=== PATIENT | female | born 2000 | race Caucasian/White ===

== ENCOUNTER 2024-03-14 13:02 | Emergency (ER) | payer OTHER, SELFPAY ==
--- NOTE | 2024-03-14 13:10 | ED.GENADULT ---
HPI - General Adult General Chief complaint: Extremity Problem,Nontraumatic Stated complaint: LOW BACK PAIN/R KNEE PAIN Time Seen by Provider: 03/14/24 13:10 Source: patient, RN notes reviewed and old records reviewed Mode of arrival: ambulatory Limitations: no limitations History of Present Illness HPI narrative: 23-year-old female to [facility] for complaint of right knee pain and lower back pain. Patient states that the right knee pain and lower back pain started in November without any known injury. Patient states that she was seen by her primary care provider and had an MRI completed at that time. Patient states that provider gave her a prescription for a muscle relaxer that was helpful. Patient reports that dull, bilateral lower back discomfort started again 3 days ago. patient states that she works for the [employer] and does a lot squatting and kneeling. Patient states that this morning upon wakening she had right knee discomfort while lying in bed. Patient reports that when she attempted to stand up that her right knee buckled . Patient denies falling. Patient arrives with a knee brace on, stating it helps. Patient denies numbness, weakness, injury, urinary changes, bowel changes. patient is sitting comfortably in exam room. No acute distress. Review of Systems Review of Systems: All systems reviewed & are unremarkable except as noted in HPI and below Constitutional: Constitutional: Reports no additional constitutional complaints Eyes: Eyes: Reports no additional eye complaints ENT: Reports system reviewed and no additional complaints, except as documented Cardiovascular: Cardiovascular: Reports no additional cardiovascular complaints, Denies chest pain and Denies dyspnea Respiratory: Respiratory: Reports no additional respiratory complaints, Denies cough and Denies dyspnea Musculoskeletal: Musculoskeletal: Reports as per HPI, Reports back pain ( bilateral lower back), Reports arthralgias ( Right knee) and Denies radiating pain into limb Neurologic: Reports system reviewed and no additional complaints, except as documented Psychiatric: Psychiatric: Reports no additional psychiatric complaints PMFSH Comments At the time of my signature, I reviewed and agree with the nursing past medical, surgical, social, and family history. There is no relevant family history pertinent to the patient complaint. Exam Const: General: cooperative, healthy appearing, comfortable, no acute distress, alert and well nourished Nutritional Appearance: well nourished Orientation/consciousness: patient oriented x3 Limitations: no limitations HENMT: Head: normal to inspection Ears: external ears normal Face/Nose/Sinus: Normal external nose present, Normal nares present, normal facial exam, No erythema and No edema Face and sinus: normal facial exam, no erythema and no edema Mouth: Yes Normal oral and palatal mucosa present Eyes: General: appearance normal, both eyes and all related structures Neck: Neck: normal visual inspection, full ROM and no meningeal signs Lymphatic: no lymphadenopathy noted and no lymphedema noted Chest: Chest palpation & inspection: normal inspection of the chest Resp: Effort & Inspection: normal respiratory effort and able to speak in complete sentences Auscultation: clear to auscultation bilaterally Cardio: Jugular venous distension: no JVD Rate: regular rate Rhythm: regular rhythm Back/Spine/Pelvis: Back: CVA tenderness Cervical Spine: cervical ROM normal Thoracic/Lumbar Spine: No pain with thoraco-lumbar ROM, No paraspinal muscle tenderness, No thoraco-lumbar spasm, No lumbar spinal tenderness and No tilt present Skin: General skin exam: normal color, no rashes or lesions noted and turgor normal Neuro: General: patient oriented x3, gait normal, moves all extremities and no meningeal signs Speech: normal speech Gait exam (Neuro): Normal gait present Extrem: General: normal to inspection, full R
[2024-03-14 13:15] VITALS: BP 114/82; PULSE 91; RESP 16; TEMP 36.7; O2SAT 99
== END 2024-03-14 14:00 | disposition home or self-care (01) ==
PROVIDERS: Emergency Provider Nurse Practitioner Family
DX: S83.91XA Sprain of unspecified site of right knee, initial encounter (principal); X50.9XXA Other and unspecified overexertion or strenuous movements or postures, initial encounter
CPT/HCPCS: 99202; G0463

== ENCOUNTER 2024-06-12 10:28 | Emergency (ER) | payer OTHER, SELFPAY ==
[2024-06-12 10:44] VITALS: BP 133/98; PULSE 95; RESP 16; TEMP 36.4; O2SAT 100
--- NOTE | 2024-06-12 11:31 | ED.FEMALEGU ---
HPI - Female Genitourinary General Chief complaint: Urogenital-Female Stated complaint: Uti Symptoms Time Seen by Provider: 06/12/24 11:31 Source: patient Mode of arrival: ambulatory Limitations: no limitations History of Present Illness HPI Narrative: 23-year-old female presents with complaint of urinary frequency, urgency, dysuria, hematuria for 1 week. Positive chills. Denies fever. Denies nausea vomiting. Taking [id number] azo to treat symptoms. All systems reviewed and negative except as noted above. Related Data Allergies Allergy/AdvReac Type Severity Reaction Status Date / Time No Known Allergies Allergy Verified 06/12/24 10:46 Review of Systems Review of Systems: CONSTITUTIONAL: Denies fever, chills, or sweats. EYES: Denies visual changes, redness, or discharge. ENT: Denies rhinorrhea, congestion, sore throat, or otalgia. CARDIOVASCULAR: Denies chest pain, palpitations, or edema. RESPIRATORY: Denies cough or dyspnea. GASTROINTESTINAL: Denies abdominal pain, nausea, vomiting, or diarrhea. GENITOURINARY: Reports dysuria, urgency, frequency, hematuria. SKIN: Denies rash or itching. MUSCULOSKELETAL: Denies back pain, joint pain, or myalgia. NEUROLOGIC: Denies headache, numbness, or weakness. PSYCHIATRIC: Denies anxiety or depression. All other systems reviewed are negative, except as documented in HPI. PMFSH Comments At time of signature, agree with nursing past medical, surgical, social and family history. There is no relevant family history pertinent to the presenting complaint. Exam Narrative: GENERAL: This is a well-nourished, well-developed patient, in no apparent distress. HEAD: normocephalic, atraumatic. EYES: PERRL. Sclera clear/white. Vision is grossly intact. EARS: External ears normal NOSE: External nose normal NECK: Neck supple, non-tender without lymphadenopathy, masses or thyromegaly. CARDIOVASCULAR: Regular rate and rhythm without murmurs, gallops, or rubs. RESPIRATORY: Clear to auscultation. Breath sounds equal bilaterally. No wheezes, rales, or rhonchi. SKIN: warm, Dry, intact with no suspicious lesions or rash, good texture and turgor. NEURO: awake, alert, and oriented to person, place and time. There were no obvious focal neurologic abnormalities. EXTREMITIES: No joint tenderness, effusion, or edema noted. Course Course Level of Care: Express Care Visit Vital Signs Vital signs: Vital Signs Temperature 36.4 C 06/12/24 10:44 Pulse Rate 95 06/12/24 10:44 Respiratory Rate 16 06/12/24 10:44 Blood Pressure 133/98 H 06/12/24 10:44 Pulse Oximetry 100 06/12/24 10:44 Oxygen Delivery Room Air 06/12/24 10:44 Temperature 36.4 C 06/12/24 10:44 Pulse Rate 95 06/12/24 10:44 Respiratory Rate 16 06/12/24 10:44 Blood Pressure 133/98 H 06/12/24 10:44 Pulse Oximetry 100 06/12/24 10:44 Oxygen Delivery Room Air 06/12/24 10:44 Reviewed MDM - Female Genitourinary MDM Narrative Medical decision making narrative: Patient is aware of diagnosis, understands and agrees to treatment plan. Anticipatory guidance given. Patient agrees to follow-up as directed and is aware of reasons to seek care at the emergency department. Portions of this record may have been created with voice recognition software Differential Diagnosis Differential diagnosis: Likely urinary tract infection Discharge Plan Discharge Clinical Impression: Urinary tract infection Patient Disposition: Home, Self-Care Condition: Stable Instructions: Antibiotic Form, Urinary Tract Infection in Women (DC) Additional Instructions: Take antibiotic as prescribed until gone. May continue taking [id number] azo to treat her urinary symptoms. Drink at least 64 oz of water a day. Follow-up with your primary care physician or parks recreation director if symptoms are not improving. Prescriptions: New amoxicillin-pot clavulanate [Augmentin] 500-125 mg tablet 1 tablet PO BID
== END 2024-06-12 11:45 | disposition home or self-care (01) ==
PROVIDERS: Emergency Provider Nurse Practitioner Family; PCP Nurse Practitioner Family
DX: N39.0 Urinary tract infection, site not specified (principal); B95.7 Other staphylococcus as the cause of diseases classified elsewhere
CPT/HCPCS: 87086; 99213; G0463

== ENCOUNTER 2024-07-31 10:36 | Outpatient (CLI) | payer OTHER, SELFPAY ==
--- NOTE | ~2024-07-31 | US_ITS ---
Pelvic ultrasound. Clinical History: First trimester , Vandana dates and viability Technique: Realtime transabdominal and transvaginal scanning of the pelvis was performed. Color flow Doppler and Doppler spectral analysis were performed. Findings: The uterus is anteverted. The endometrial stripe has a thickness of 10 mm. No intrauterine gestational sac is identified. Small cervical nabothian cysts noted. The right ovary measures 1.7 x 1.7 x 2.3 cm. No significant right ovarian or adnexal mass is seen. The left ovary measures 1.9 x 1.6 x 3.2 cm. No significant left ovarian or adnexal mass is seen. There is trace free fluid in the cul de sac. Impression: Positive test without intrauterine gestation. Differential diagnosis includes early normal , spontaneous , or nonvisualized ectopic . Correlate clinically. Continued follow-up with serial beta hCG, and repeat ultrasound as warranted, is advised. Reviewed, dictated and finalized at [facility]. MOTIVE PARTS PERSON Impression: Positive test without intrauterine gestation. Differential diagnosis includes early normal , spontaneous , or nonvisualized ectopic . Correlate clinically. Continued follow-up with serial beta hCG, and repeat ultrasound as warranted, is advised.
== END 2024-07-31 10:37 | disposition home or self-care (01) ==
LOC: GOSHIMG 10:37
PROVIDERS: PCP Student in an Organized Health Care Education/Training Program; Visit Provider Student in an Organized Health Care Education/Training Program
DX: Z34.90 Encounter for supervision of normal pregnancy, unspecified, unspecified trimester (principal); Z3A.00 Weeks of gestation of pregnancy not specified
CPT/HCPCS: 76801; 76817

== ENCOUNTER 2024-08-03 10:40 | Emergency (ER) | payer OTHER, SELFPAY ==
--- NOTE | ~2024-08-03 | US_ITS ---
EXAMINATION: US OB transvaginal DATE: 08/03/2024 12:24 INDICATION: First trimester bleeding. No confirmed IUP. TECHNIQUE: Real-time transabdominal and transvaginal obstetric ultrasound. FINDINGS: Ultrasound dated 07/31/2024 The uterus measures 5.7 x 3.2 x 4.7 cm. Endometrium is thickened with small amount of fluid. Endometr ium measures 11 mm. No definitive gestational sac, pole or yolk sac identified. There is a smal l nabothian cyst. Left ovary measures 3 x 1.7 x 1.7 cm and contains follicular changes. Small amount of free fluid in the pelvis. Left ovary is unremarkable measuring 1.8 x 1.5 x 1.7 cm. IMPRESSION: 1. No definitive intrauterine gestational sac, pole or yolk sac. Differential diagnosis include s very early intrauterine , failed and nonvisualized ectopic . Recommend follow-up with serial quantitative beta-hCG levels and ultrasound as clinically warranted. Reviewed, dictated and finalized at location B. CENTER OPERATOR IMPRESSION: 1. No definitive intrauterine gestational sac, pole or yolk sac. Elizabeth dial diagnosis includes very early intrauterine , failed and nonvisualized ectopic . Recommend follow-up with serial quantitative beta-hCG levels and ultrasound as clinically warranted.
[2024-08-03 11:00] VITALS: BP 126/80; PULSE 86; RESP 18; TEMP 36.4; O2SAT 100
[2024-08-03 11:36] LABS: Basophils Percent Auto 0.4 % (0.2-1.2); Eosinophils Absolute Auto 0.1 K/mm3 (0-0.3); Eosinophils Percent Auto 0.6 % (0-4.4); Hematocrit 43.9 % (37.0-47.0); Hemoglobin 14.7 g/dL (12.0-15.0); Immature Granulocyte Absolute 0.02 K/mm3 (0.00-0.031); Immature Granulocyte Percent A 0.2 % (0-0.5); Lymphocytes Absolute Auto 1.46 K/mm3 (0.9-3.2); Lymphocytes Percent Auto 16.2 % (18.3-44.2); Mean Corpuscular HGB Conc 33.5 g/dl (32-36); Mean Corpuscular Hemoglobin 31.1 pg (26-34); Mean Platelet Volume 10.4 fl (7.4-10.4); Monocytes Absolute Auto 0.5 K/mm3 (0.1-0.6); Monocytes Percent Auto 5.2 % (2.6-8.5); Neutrophils Percent Auto 77.4 % (45.5-73.1); Platelet Count Result 253 k/mm3 (150-375); Red Blood Count 4.72 M/mm3 (4.2-5.4); Red Cell Distribution Width 12.7 % (11.5-14.5)
[2024-08-03 11:49] LABS: Alanine Aminotransferase 16 U/L (6-35); Albumin Level 4.5 g/dL (3.5-5.1); Alkaline Phosphatase 86 U/L (38-126); Anion Gap 4 mmol/L (4-12); Aspartate Amino Transferase 27 U/L (14-36); Bilirubin,Total 0.6 mg/dL (0.2-1.3); Blood Urea Nitrogen 8 mg/dL (7-17); Calcium 9.2 mg/dL (8.4-10.2); Carbon Dioxide 27 mmol/L (22-30); Chloride 105 mmol/L (98-107); Estimated Glomerular Filt Rate > 60; Glucose 90 mg/dL (65-110); Potassium 4.1 mmol/L (3.4-5.0); Sodium 136 mmol/L (137-145)
[2024-08-03 11:58] VITALS: BP 118/74; PULSE 82; RESP 16; TEMP 36.6; O2SAT 98
[2024-08-03 12:05] LABS: Beta HCG Quantitative 401.12 mIU/ML
--- NOTE | 2024-08-03 12:48 | ED.FEMALEGU ---
HPI - Female Genitourinary General Chief complaint: Vaginal Bleeding Stated complaint: 5 weeks preg, vag bleeding Time Seen by Provider: 08/03/24 11:11 History of Present Illness HPI Narrative: Patient at ?5wk preg? unsure due to having Nexplanon and no consistent periods, p/w VB starting today and some abd cramping. Related Data Home Medications ?Medication ?Instructions ?Recorded ?Confirmed ?Last Taken ?Type vits no.126-ferrous fum tablet PO 06/15/24 07/26/24 Unknown History 28 mg iron-folic acid 800 mcg tablet (Classic ) Allergies Allergy/AdvReac Type Severity Reaction Status Date / Time No Known Allergies Allergy Verified 07/26/24 09:02 Review of Systems Review of Systems: All systems reviewed & are unremarkable except as noted in HPI and below PMFSH Past Medical History Medical History (Updated 08/03/24 @ 12:48 by uL Diaz MD) Suppression of menses Anemia Encounter for surveillance of implantable subdermal contraceptive Social History Social History (Updated 07/26/24 @ 09:23 by Gianna Bah [facility]) Smoking status: Never smoker Alcohol intake: never Substance use: never Do You Feel Safe in your Home?: Yes Lack of Transportation: No Lack of Food: Never True Current Housing: I Have Housing Concerned About Future Housing: No Difficulty Paying Gas/Electric Bills: No Difficulty Paying for Meds: No Currently Unemployed: No Education: Bachelor's Degree Difficulty w/ Childcare or Family Care: No Living arrangements: with family Occupation/Education: occupation Gender identity (if verbalized by the patient): Female Exam Narrative: EXAMINATION OF ORGAN SYSTEMS/BODY AREAS: Constitutional: Vital signs per nursing GENERAL:[No acute distress, non-toxic appearing.] HEAD: Normal with no signs of head trauma. EYES: EOMI, conjunctiva normal ENT: Hearing grossly intact LUNGS: Nonlabored breathing. HEART: [Regular rate and rhythm] ABD: [Soft], [nontender to palpation] : scant blood in vault EXT: Normal range of motion SKIN: [No rashes or lesions.] NEURO: [Alert and oriented x 3. No gross focal sensory or strength deficits.] PSYCH: Normal affect Course Vital Signs Vital signs: Vital Signs Temperature 97.6 F 08/03/24 11:00 Pulse Rate 86 08/03/24 11:00 Respiratory Rate 18 08/03/24 11:00 Blood Pressure 126/80 08/03/24 11:00 Pulse Oximetry 100 08/03/24 11:00 Temperature 97.6 F 08/03/24 13:04 Pulse Rate 88 08/03/24 13:04 Respiratory Rate 16 08/03/24 13:04 Blood Pressure 126/76 08/03/24 13:04 Pulse Oximetry 100 08/03/24 13:04 MDM - Female Genitourinary MDM Narrative Medical decision making narrative: 23-year-old female positive presenting with vaginal bleeding, on exam she is well-appearing, abdomen soft without significant tenderness, some blood in vaginal vault without hemorrhage. Repeat beta quant here as unfortunately lower than last week, and transvaginal ultrasound without intrauterine , concerning for possible miscarriage unfortunately. Discussed this with the patient, as well as follow-up to her OBGYN, and strict return precautions. Patient agreeable to this plan Lab Data 08/03/24 11:30 08/03/24 11:30 Labs: Lab Results 08/03/24 Range/Units 11:30 WBC 9.0 (4.5-10.0) K/mm3 RBC 4.72 (4.2-5.4) M/mm3 Hgb 14.7 (12.0-15.0) g/dL Hct 43.9 (37.0-47.0) % MCV 93.0 (80-100) fl MCH 31.1 (26-34) pg MCHC 33.5 (32-36) g/dl RDW 12.7 (11.5-14.5) % Plt Count 253 (150-375) k/mm3 MPV 10.4 (7.4-10.4) fl Immature Gran % (Auto) 0.2 (0-0.5) % Neut % (Auto) 77.4 H (45.5-73.1) % Lymph % (Auto) 16.2 L (18.3-44.2) % Grimes % (Auto) 5.2 (2.6-8.5) % Eos % (Auto) 0.6 (0-4.4) % Baso % (Auto) 0.4 (0.2-1.2) % Lymph # (Auto) 1.46 (0.9-3.2) K/mm3 Grimes # (Auto) 0.5 (0.1-0.6) K/mm3 Eos # (Auto) 0.1 (0-0.3) K/mm3 Baso # (Auto) 0.0 (0.0-0.1) K/mm3 Abs Immat Gran (auto) 0.02 (0.00-0.031) K/mm3 Absolute Neuts (auto) 7.0 H (1.3-6.7) K/mm3 Absolute Nucleated RBC 0.000 (0.0-0.012) K/mm3 Nucleated RBC % 0.0 (0.0-0.2) % Sodium 136 L (137-145) mmol/L Potassium 4.1 (3.4-5.0) mmol/L Chloride 105 (98-107) mmol/L Carbon Dioxide 27 (22-30) mmol/L Anion Gap 4 (4-12) mmol/L BUN 8 (7-17) mg/dL Creatinine 0.60 L (0.7-1.0) mg/dL Estim Creat Clear Calc Not Reportable Estimated GFR > 60 (59 - ) Glucose 90 (65-110) mg/dL Calcium 9.2 (8.4-10.2) mg/dL Total Bilirubin 0.6 (0.2-1.3) mg/dL AST 27 (14-36) U/L ALT 16 (6-35) U/L Alkaline Phosphatase 86 (38-126) U/L Total Protein 8.0 (6.3-8.2) g/dL Albumin 4.5 (3.5-5.1) g/dL Beta HCG, Quant 401.12 mIU/ML Blood Type O Positive Antibody Screen Negative Screen Not Reportable Baby's Blood Type Not Reportable Baby's LE Not Reportable Doses of RhIg Required 0 Discharge Plan Discharge Clinical Impression: Threatened Patient Disposition: Home, Self-Care Condition: Stable Instructions: Threatened Miscarriage (ED) Additional Instructions: Please call your OBGYN for followup. If you experience heavier bleeding, especially if you are soaking through 1 pad an hour for 2 hours straight, please come back to the emergency room. Patient Language: Puerto Rican Prescriptions: No Action Classic 28 mg iron- 800 mcg tablet PO Follow-up/Referrals: Duncan Capellan MD [Primary Care Provider] - 2 Days
[2024-08-03 13:04] VITALS: BP 126/76; PULSE 88; RESP 16; TEMP 36.4; O2SAT 100
== END 2024-08-03 13:06 | disposition home or self-care (01) ==
PROVIDERS: Emergency Provider Emergency Medicine; PCP Student in an Organized Health Care Education/Training Program
DX: O20.0 Threatened abortion (principal); Z3A.01 Less than 8 weeks gestation of pregnancy; Z86.2 Personal history of diseases of the blood and blood-forming organs and certain disorders involving the immune mechanism
CPT/HCPCS: 36415; 76817; 80053; 84702; 85025; 85461; 86850; 86900; 86901; 99284

== ENCOUNTER 2025-01-25 01:41 | Emergency (ER) | payer OTHER, SELFPAY ==
--- OUTSIDE RECORDS SUMMARY | 2025-01-25 01:43 | XMS_ITS | CONTINUITY OF CARE DOCUMENT ---
Author Name arabella bell Address Unknown Organization [facility] Address [address] [place] [address] Phone [phone] Care Team Providers Care Percher Name Role Phone Armida Castro MD Unavailable [phone] Sharonda PANDEY, Aston Unavailable Sharonda PANDEY, Aston Unavailable PROBLEMS Condition Status Date Provider Notes Cardiology examination active Armida del real MD Postural orthostatic tachycardia syndrome active 07/31 Armida Castro MD active Armida Castro MD ENCOUNTERS Date Type Provider Location Encounter Diag nosis - In-person encounter Office Visit Armida Castro MD [facility] Office Cardiology examinationPostural orthostatic tachycardia syndromePregnancy VITAL SIGNS Date Observation Value Provider Body Mass Index (Ratio) 25.85 kg/m2 Althea Castro MD blood pressure, cuff size regular An bo Porter blood pressure, diastolic 81 mm[Hg] Veronica Porter blood pressure, systolic 106 mm[Hg] Kayleigh Porter oxygen saturation, oximetry 98 % Concepción Porter respiratory rate E&M 12 /min Concepción Porter pulse rate 89 /min Concepción Porter weight E&M 170 [lb_av] Concepción Porter height E&M 68 [in_i] Concepción Porter ALLERGIES No Known Drug Allergies HISTORY OF MEDICATION USE Medication Status Instructions Dates Provider Indications Com ments active Concepción Porter INSURANCE PROVIDERS Payer name Policy type / Coverage type [employer] party ID [id number] PAY [id number] ADVANCE DIRECTIVES Name Date DISCUSSED - NO DECISION MADE TREATMENT PLAN Date Name Performer Cardiology:Establish diagnosis from with Dr. Del Valle. She has been on Midodrine. Seems to be tolerating medication well. May be able to resume use after is done. Unfortunately has another 35 weeks of left as she is only in week 5. Recommend for her to discontinue Midodrine and utilize salt tabs, volume loading, and assessment with high school agriculture teacher and MFM at [facility] or [facility]. Armida Castro MD Cardiology:First pre gnancy. has establshed diagnoses of POTS syndrome. unclear use of Midodrine. Recommned for her to discontinue. Recommend eval with high risk MFM at [facility] or [facility] for evaluation. Armida Castro MD Date Name Complete Echo HISTORY OF PROCEDURES Procedure Date Procedure Name Provider Procedure Notes S tatus EKG Armida Castro MD compl eted
[2025-01-25 01:47] VITALS: BP 127/83; PULSE 99; RESP 18; TEMP 36.6; O2SAT 98
--- NOTE | 2025-01-25 02:14 | ED.PREGNANCY ---
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 Patient states that it started around midnight today. Does not remember doing anything exertional or strenuous. She states that she has had round ligament pain before during her previous but this feels more intense. No nausea vomiting, back pain, upper abdominal pain, chest pain, shortness a breath, fever, chills. She was otherwise in her normal state of health. Had a regular OBGYN visit yesterday morning for screening and monitoring. She has an unremarkable course thus far. Took 500 mg of Tylenol 8:00 p.m. without any relief. Related Data Home Medications ?Medication ?Instructions ?Recorded ?Confirmed ?Last Taken ?Type docosahexaenoic acid 200 mg mg PO 11/23/24 12/27/24 Unknown History capsule ( DHA) Allergies Allergy/AdvReac Type Severity Reaction Status Date / Time No Known Allergies Allergy Verified 01/25/25 01:48 Review of Systems Review of Systems: As reviewed above in HPI [facility] Past Medical History Medical History POTS (postural orthostatic tachycardia syndrome) Suppression of menses Anemia Encounter for surveillance of implantable subdermal contraceptive Social History Social History Smoking status: Never smoker Alcohol intake: never Substance use: never Do You Feel Safe in your Home?: Yes Lack of Transportation: No Lack of Food: Never True Current Housing: I Have Housing Concerned About Future Housing: No Difficulty Paying Gas/Electric Bills: No Difficulty Paying for Meds: No Currently Unemployed: No Education: Bachelor's Degree Difficulty w/ Childcare or Family Care: No Living arrangements: with family 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 Mucous membranes moist. NECK: Supple. CHEST: [Clear to auscultation. No respiratory distress.] HEART: [Regular rate and rhythm]. No murmur heard. [Normal peripheral pulses.] ABDOMEN: [Soft, nondistended], mildly tender in the right flank area, [No rigidity or guarding] EXTREMITIES: Normal range of motion. [No edema.] SKIN: Warm, dry, no rash. NEURO: [No focal deficits]. Alert and oriented [x3.] PSYCH: [Normal mood and affect.] Course Vital Signs Vital signs: Vital Signs Temperature 36.6 C 01/25/25 01:47 Pulse Rate 99 01/25/25 01:47 Respiratory Rate 18 01/25/25 01:47 Blood Pressure 127/83 01/25/25 01:47 Pulse Oximetry 98 01/25/25 01:47 Oxygen Delivery Room Air 01/25/25 01:47 Temperature 36.8 C 01/25/25 03:16 Pulse Rate 80 01/25/25 03:16 Respiratory Rate 16 01/25/25 03:16 Blood Pressure 127/93 H 01/25/25 03:16 Pulse Oximetry 98 01/25/25 03:16 Oxygen Delivery Room Air 01/25/25 01:47 MDM - OB/Uterine Contractions MDM Narrative Medical decision making narrative: 24-year-old female with a history of POTS approximately 18 weeks presenting to the emergency department with right hip pain. She states that started around 8:00 p.m. and worsened around midnight. No associated back pain, fever, chills, nausea, upper abdominal pain, chest pain, shortness a breath. Denies any trauma or injury. She is afebrile here with normal vital signs without any tachycardia, tachypnea blood pressure concerns. She has some tenderness very mild intensity but reproducible with palpation along the right hip/flank. She has had an unremarkable course thus far in this could very well be round ligament pain but given the location near the appendix could also be signs of early appendicitis or other intra-abdominal process as colitis. Low suspicion for series infectious process given her normal vital signs here but we will obtain laboratory studies as potential screening including a CBC and BMP. She was given extra-strength Tylenol and re-evaluated. Patient's laboratory studies show some mild dehydration consistent with her known history of POTS with a sodium 132, BUN was 6 g creatinine is 0.39. Normal electrolytes otherwise. Normal GFR and glucose. She has a slight leukocytosis of 11.2 which is just above normal but could also be a component of hemoconcentration rather than infectious process. Normal platelet count, normal hemoglobin. Went and re-evaluated the patient and discussed her lab work. Patient has no pain at this time and states the pain has come and gone in waves. We discussed potential etiologies for her symptoms including potential round ligament pain, contractions as she has begun feeling baby move, musculoskeletal pain, or even intra-abdominal or infectious pathology, but given the fact that she is afebrile, no tachycardia or other vital concerns and has a reassuring examination the suspicion for intra-abdominal infection is low. Discussed plan of care with her which will be for outpatient follow-up with her regular doctors and OBGYN as well as very strict return precautions to watch out for including signs or symptoms of a severe infection such as fevers, chills, sweats, intractable or worsening pain, nauseousness with vomiting, migrating abdominal pain, urinary complaints or any other symptoms and she should seek re-evaluation on a short-term basis or return to the emergency department. Patient verbalized expressing understanding of these strict instructions and safe for discharge home at this time with encouragement for oral hydration and Tylenol as needed for aches and pains. Medical Records Attestation: I reviewed the patient's medical records. Lab Data Attestation: I reviewed the patient's lab results. 01/25/25 02:22 01/25/25 02:22 Labs: Lab Results 01/25/25 Range/Units 02:22 WBC 11.2 H (4.5-10.0) K/mm3 RBC 4.10 L (4.2-5.4) M/mm3 Hgb 12.6 (12.0-15.0) g/dL Hct 37.2 (37.0-47.0) % MCV 90.7 (80-100) fl MCH 30.7 (26-34) pg MCHC 33.9 (32-36) g/dl RDW 12.9 (11.5-14.5) % Plt Count 224 (150-375) k/mm3 MPV 10.6 H (7.4-10.4) fl Immature Gran % (Auto) 0.3 (0-0.5) % Neut % (Auto) 76.9 H (45.5-73.1) % Lymph % (Auto) 16.0 L (18.3-44.2) % [place] % (Auto) 5.7 (2.6-8.5) % Eos % (Auto) 0.7 (0-4.4) % Baso % (Auto) 0.4 (0.2-1.2) % Lymph # (Auto) 1.80 (0.9-3.2) K/mm3 [place] # (Auto) 0.6 (0.1-0.6) K/mm3 Eos # (Auto) 0.1 (0-0.3) K/mm3 Baso # (Auto) 0.0 (0.0-0.1) K/mm3 Abs Immat Gran (auto) 0.03 (0.00-0.031) K/mm3 Absolute Neuts (auto) 8.6 H (1.3-6.7) K/mm3 Absolute Nucleated RBC 0.000 (0.0-0.012) K/mm3 Nucleated RBC % 0.0 (0.0-0.2) % Sodium 132 L (137-145) mmol/L Potassium 3.6 (3.4-5.0) mmol/L Chloride 102 (98-107) mmol/L Carbon Dioxide 22 (22-30) mmol/L Anion Gap 8 (4-12) mmol/L BUN 6 L (7-17) mg/dL Creatinine 0.39 L (0.7-1.0) mg/dL Estim Creat Clear Calc 178 ml/min Estimated GFR > 60 (59 - ) Glucose 87 (65-110) mg/dL Calcium 9.1 (8.4-10.2) mg/dL Discharge Plan Discharge Clinical Impression: Hip pain, right Patient Disposition: Home Condition: Stable Instructions: Antibiotic Form Additional Instructions: Maintain good oral hydration and take Tylenol 1000 mg every 8 hours as needed for pain or fever. Be observant for signs or symptoms of a severe infection such as fevers, chills, sweats, intractable or worsening pain, nauseousness with vomiting, migrating abdominal pain, urinary complaints or any other symptoms and you should seek re-evaluation on a short-term basis or return to the emergency department. Follow-up on outpatient basis with your regular doctor and OBGYN otherwise. Patient Language: Irish Prescriptions: No Action DHA 200 mg capsule PO metoclopramide HCl [Reglan] 10 mg tablet 10 mg PO Q6H PRN (Reason: nausea and vomiting) Qty: 40 2RF Follow-up/Referrals: UNKNOWN,DOCTOR [Primary Care Provider] - Time of Disposition: 03:05
[2025-01-25] MEDS: ACETAMINOPHEN 500 MG TABLET 1000 MG PO (02:27)
--- OUTSIDE RECORDS SUMMARY | 2025-01-25 02:28 | XMS_ITS | CONTINUITY OF CARE DOCUMENT ---
Author Name arabella bell Address Unknown Organization [facility] Address [address] [place] [address] Phone [phone] Care Team Providers Care Business Administration Teacher Name Role Phone Armida Castro MD Unavailable [phone] Sharonda PANDEY, Aston Unavailable [phone] Sharonda PANDEY, Aston Unavailable [phone] PROBLEMS Condition Status Date Provider Notes Cardiology examination active Armida del real MD Postural orthostatic tachycardia syndrome active 07/31 Armida Castro MD active Armida Castro MD ENCOUNTERS Date Type Provider Location Encounter Diag nosis - In-person encounter Office Visit Armida Castro MD [facility] Office Cardiology examinationPostural orthostatic tachycardia syndromePregnancy VITAL [...] Policy type / Coverage type Annie red republican ID SELF PAY [id number] ADVANCE DIRECTIVES Name Date DISCUSSED - NO [...] salt tabs, volume loading, and assessment with highway engineering technician and MFM at [facility] or [facility]. Armida Castro MD Cardiology:First pre gnancy. has establshed diagnoses of POTS syndrome. unclear use of Midodrine. Recommned for her to discontinue. Recommend eval with high risk MFM at [facility] or [facility] for evaluation. Armida Castro MD Date Name Complete Echo HISTORY OF PROCEDURES Procedure Date Procedure Name Provider Procedure Notes S tatus EKG Armida Castro MD compl eted
[2025-01-25 02:30] LABS: Basophils Percent Auto 0.4 % (0.2-1.2); Eosinophils Absolute Auto 0.1 K/mm3 (0-0.3); Eosinophils Percent Auto 0.7 % (0-4.4); Hematocrit 37.2 % (37.0-47.0); Hemoglobin 12.6 g/dL (12.0-15.0); Immature Granulocyte Absolute 0.03 K/mm3 (0.00-0.031); Immature Granulocyte Percent A 0.3 % (0-0.5); Mean Corpuscular HGB Conc 33.9 g/dl (32-36); Mean Corpuscular Hemoglobin 30.7 pg (26-34); Mean Corpuscular Volume 90.7 fl (80-100); Mean Platelet Volume 10.6 fl (7.4-10.4); Monocytes Absolute Auto 0.6 K/mm3 (0.1-0.6); Monocytes Percent Auto 5.7 % (2.6-8.5); Neutrophils Absolute Auto 8.6 K/mm3 (1.3-6.7); Neutrophils Percent Auto 76.9 % (45.5-73.1); Platelet Count Result 224 k/mm3 (150-375); Red Cell Distribution Width 12.9 % (11.5-14.5); White Blood Count 11.2 K/mm3 (4.5-10.0)
[2025-01-25 02:42] LABS: Anion Gap 8 mmol/L (4-12); Blood Urea Nitrogen 6 mg/dL (7-17); Calcium 9.1 mg/dL (8.4-10.2); Carbon Dioxide 22 mmol/L (22-30); Chloride 102 mmol/L (98-107); Estimated CRCL calculation 178 ml/min; Estimated Glomerular Filt Rate > 60; Glucose 87 mg/dL (65-110); Potassium 3.6 mmol/L (3.4-5.0); Sodium 132 mmol/L (137-145)
[2025-01-25 03:16] VITALS: BP 127/93; PULSE 80; RESP 16; TEMP 36.8; O2SAT 98
== END 2025-01-25 03:18 | disposition home or self-care (01) ==
PROVIDERS: Emergency Provider Student in an Organized Health Care Education/Training Program
DX: O99.891 Other specified diseases and conditions complicating pregnancy (principal); M25.551 Pain in right hip; O99.352 Diseases of the nervous system complicating pregnancy, second trimester; G90.A Postural orthostatic tachycardia syndrome [POTS]; Z86.2 Personal history of diseases of the blood and blood-forming organs and certain disorders involving the immune mechanism; Z3A.18 18 weeks gestation of pregnancy
CPT/HCPCS: 36415; 80048; 85025; 99283; A9270

== ENCOUNTER 2025-04-07 09:56 | Emergency (ER) | payer OTHER, SELFPAY ==
[2025-04-07 10:08] VITALS: BP 121/81; PULSE 87; RESP 18; TEMP 36.3; O2SAT 98
--- NOTE | 2025-04-07 10:23 | ED.URI ---
HPI - URI/Sore Throat General Chief Complaint: Upper Respiratory Infection Stated Complaint: SORE THROAT Time Seen by Provider: 04/07/25 10:23 Source: patient Mode of arrival: ambulatory Limitations: no limitations History of Present Illness HPI Narrative: 24-year-old female presents with complaint of sore throat for 5 days. Reports pain became worse for the past 2 days. Afebrile. No cough, congestion. Denies nausea vomiting. Patient is 28 weeks . Nopregnancy complaints today. All systems reviewed and negative except as noted above. Related Data Home Medications ?Medication ?Instructions ?Recorded ?Confirmed ?Last Taken ?Type docosahexaenoic acid 200 mg mg PO 11/23/24 12/27/24 Unknown History capsule ( DHA) Allergies Allergy/AdvReac Type Severity Reaction Status Date / Time No Known Allergies Allergy Verified 04/07/25 09:59 PMFSH Past Medical History Medical History POTS (postural orthostatic tachycardia syndrome) Suppression of menses Anemia Encounter for surveillance of implantable subdermal contraceptive Social History Social History Smoking status: Never smoker Alcohol intake: never Substance use: never Do You Feel Safe in your Home?: Yes Lack of Transportation: No Lack of Food: Never True Current Housing: I Have Housing Concerned About Future Housing: No Difficulty Paying Gas/Electric Bills: No Difficulty Paying for Meds: No Currently Unemployed: No Education: Bachelor's Degree Difficulty w/ Childcare or Family Care: No Living arrangements: with family Occupation/Education: occupation 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 There is no relevant family history pertinent to the presenting complaint. Exam Narrative: GENERAL: This is a well-nourished, well-developed patient, in no apparent distress. HEAD: normocephalic, atraumatic. EYES: PERRL. Sclera clear/white. Vision is grossly intact. EARS: External ears normal, auditory canals clear and without drainage, TMs normal without perforation. Hearing grossly intact. NOSE: External nose normal with no obvious nasal discharge, nares without redness, no rhinorrhea. THROAT: Mucous membranes moist, mild erythema and swelling. No exudates noted. NECK: Neck supple, non-tender without lymphadenopathy, masses or thyromegaly. CARDIOVASCULAR: Regular rate and rhythm without murmurs, gallops, or rubs. RESPIRATORY: Clear to auscultation. Breath sounds equal bilaterally. No wheezes, rales, or rhonchi. SKIN: warm, Dry, intact with no suspicious lesions or rash, good texture and turgor. NEURO: awake, alert, and oriented to person, place and time. There were no obvious focal neurologic abnormalities. EXTREMITIES: No joint tenderness, effusion, or edema noted. Course Course Level of Care: Express Care Visit Vital Signs Vital signs: Vital Signs Temperature 36.3 C L 04/07/25 10:08 Pulse Rate 87 04/07/25 10:08 Respiratory Rate 18 04/07/25 10:08 Blood Pressure 121/81 04/07/25 10:08 Pulse Oximetry 98 04/07/25 10:08 Temperature 36.3 C L 04/07/25 10:08 Pulse Rate 87 04/07/25 10:08 Respiratory Rate 18 04/07/25 10:08 Blood Pressure 121/81 04/07/25 10:08 Pulse Oximetry 98 04/07/25 10:08 Reviewed MDM - URI/Sore Throat MDM Narrative Medical decision making narrative: Positive rapid strep. Will treat with amoxicillin. Patient well-appearing, nontoxic. Differential Diagnosis Differential diagnosis: Likely upper respiratory infection, sinusitis, viral infection and pharyngitis Discharge Plan Discharge Clinical Impression: Strep throat Patient Disposition: Home Condition: Stable Instructions: Antibiotic Form, Strep Throat (ED) Additional Instructions: Your strep test was positive today. Take antibiotic as prescribed until gone. Change toothbrush after taking antibiotic for 24 hours. Take Tylenol every 6-8 hours as needed for pain and fever. Drink at least 64 oz of water a day. See your doctor if symptoms are not improving. Patient Language: Occitan Prescriptions: New amoxicillin 500 mg capsule 500 mg PO Q12H 10 Days Qty: 20 0RF No Action DHA 200 mg capsule PO metoclopramide HCl [Reglan] 10 mg tablet 10 mg PO Q6H PRN (Reason: nausea and vomiting) Qty: 40 2RF Follow-up/Referrals: PHYSICIAN,WELLNESS COORDINATOR [Primary Care Provider] - Time of Disposition: 10:27
[2025-04-07 10:34] LABS: EDSTREPNEGPOS1 Positive (Negative)
== END 2025-04-07 10:30 | disposition home or self-care (01) ==
PROVIDERS: Emergency Provider Nurse Practitioner Family
DX: O99.513 Diseases of the respiratory system complicating pregnancy, third trimester (principal); J02.0 Streptococcal pharyngitis; Z3A.28 28 weeks gestation of pregnancy
CPT/HCPCS: 87880; 99213; G0463